=== PATIENT | female | born 1970 | race Caucasian/White ===

== ENCOUNTER 2016-07-09 09:29 | Day surgery (SDC) | payer BC ==
[~2016-07-09] VITALS: Ht 167.6 cm; Wt 111.0 kg
[~2016-07-09 09:29] MED LIST: BACTRIM,SEPT1 TABLET PO; CLARINEX5 MG PO; MOTRIN600 MG PO; NEXIUM40 MG PO; PHENERGAN25 MG PR; PROMETHAZINE HC25 M1 PO; SYNTHROID150 MCG PO; SYNTHROID175 MCG PO; ULTRACET1 TABLET PO; VITAMIN D2000 UNI1 PO
[2016-07-09 09:50] VITALS: BP 135/78
[2016-07-09 13:45] VITALS: BP 129/65
[2016-07-09 14:35] VITALS: BP 129/65
== END 2016-07-09 14:45 | disposition home or self-care (01) ==
LOC: SDC
DX: N92.0 Excessive and frequent menstruation with regular cycle (principal); N88.2 Stricture and stenosis of cervix uteri; N85.4 Malposition of uterus; R87.619 Unspecified abnormal cytological findings in specimens from cervix uteri; E03.9 Hypothyroidism, unspecified; K75.81 Nonalcoholic steatohepatitis (NASH); E66.9 Obesity, unspecified; Z68.39 Body mass index [BMI] 39.0-39.9, adult; Z83.49 Family history of other endocrine, nutritional and metabolic diseases; Z82.49 Family history of ischemic heart disease and other diseases of the circulatory system; Z82.3 Family history of stroke; Z83.3 Family history of diabetes mellitus; Z80.0 Family history of malignant neoplasm of digestive organs
CPT/HCPCS: 88305; J0330; J1100; J1885; J2250; J2405; J3010